=== PATIENT | male | born 1975 | race Two or more races ===

== ENCOUNTER 2019-10-05 07:24 | Emergency (ER) | payer OTHER ==
[~2019-10-05] VITALS: Ht 160 cm; Wt 99.8 kg
[2019-10-05 07:34] VITALS: BP 161/118
== END 2019-10-05 07:54 | disposition home or self-care (01) ==
LOC: ER 07:24
DX: J32.9 Chronic sinusitis, unspecified (principal); I10 Essential (primary) hypertension; Z95.5 Presence of coronary angioplasty implant and graft